=== PATIENT | female | born 1990 | race Caucasian/White ===

== ENCOUNTER 2018-01-01 21:02 | Emergency (ER) | payer OTHER ==
[2018-01-01] MEDS ORDERED: Lidocaine 1% INJ* 10 MG/ML 30 ML SDV INJ ONE (22:43)
--- NOTE | 2018-01-01 22:59 | ED ---
Lower Extremity - HPI Summary HPI Summary: 27-year-old female presents with left thumb avulsion today. States she cut it on a knife. Area continues to bleed. No numbness or tingling. Her tetanus is up-to-date. No medical conditions. She denies any foreign body in the wound. She has been placing pressure on the area. - History of Current Complaint Chief Complaint: EDLacSutureRecheck Stated Complaint: LT THUMB LACERATION Time Seen by Provider: 01/01/18 22:15 Pain Intensity: 6 - Allergies/Home Medications Allergies/Adverse Reactions: Allergies Allergy/AdvReac Type Severity Reaction Status Date / Time No Known Allergies Allergy Verified 01/01/18 21:22 PMH/Surg Hx/FS Hx/Imm Hx Endocrine/Hematology History: Denies: Hx Anticoagulant Therapy Cardiovascular History: Denies: Hx Myocardial Infarction Infectious Disease History: No Infectious Disease History: Denies: Traveled Outside the [place] in Last 30 Days - Social History Alcohol Use: Occasionally Substance Use Type: Reports: None Smoking Status (MU): Never Smoked Tobacco Review of Systems Negative: Fever Negative: Chest Pain Negative: Shortness Of Breath Positive: Other - left thumb avulsion All Other Systems Reviewed And Are Negative: Yes Physical Exam Triage Information Reviewed: Yes Vital Signs On Initial Exam: Initial Vitals Temp Pulse Resp BP Pulse Ox 98.0 F 56 16 116/84 99 01/01/18 21:19 01/01/18 21:19 01/01/18 21:19 01/01/18 21:19 01/01/18 21:19 Vital Signs Reviewed: Yes Appearance: Positive: Well-Appearing Skin: Positive: Other - 1/2cm avuslion of left thumb partially end of nail involvement Head/Face: Positive: Normal Head/Face Inspection Eyes: Positive: Normal, Conjunctiva Clear ENT: Positive: Pharynx normal Respiratory/Lung Sounds: Positive: Clear to Auscultation, Breath Sounds Present Cardiovascular: Positive: Normal, RRR Musculoskeletal: Positive: Strength/ROM Intact - left thumb, Other - good pulses Neurological: Positive: Normal Psychiatric: Positive: Normal Procedures - Laceration/Wound Repair 1 Location: Other - left thumb Length, Depth and Shape: 1/2cm avuslion Irrigated w/ Saline (ccs): 30 Sterile Dressing Applied?: Yes - surgicel, xeroform, gauze, coband Diagnostics - Vital Signs Vital Signs Temp Pulse Resp BP Pulse Ox 01/01/18 21:19 98.0 F 56 16 116/84 99 - Laboratory Lab Statement: Any lab studies that have been ordered have been reviewed, and results considered in the medical decision making process. Lower Extremity Course/Dx - Course Course Of Treatment: 27-year-old female presents with left thumb avulsion today. States she cut it on a knife. Area continues to bleed. No numbness or tingling. Her tetanus is up-to-date. No medical conditions. She denies any foreign body in the wound. She has been placing pressure on the area. Clean area and placed Surgicel xeroform gauze and Coband on area. Bleeding controlled. Told to keep pressure dressing on area. Patient understands agrees plan. - Diagnoses Differential Diagnosis/HQI/PQRI: Positive: Other - laceration, avulsion, abrasion Provider Diagnoses: Nail avulsion Discharge - Sign-Out/Discharge Documenting (check all that apply): Patient Departure - Discharge Plan Condition: Good Disposition: HOME Patient Education Materials: Skin Avulsion (ED) Referrals: No Primary Care Phys,NOPCP [Primary Care Provider] - Additional Instructions: Keep area in pressure dressing for 48 hours, after 48 hours check for sign of infection leaving absorbable hemostat on wound and rewrap with pressure dressing for another 24 hours afterwards keep area covedred Follow up with primary within 5 days Return to ED if develop any signs of infection such as fever, spreading redness , or pus formation or if bleed through pressure dressing or any new or worsening symptoms - Billing Disposition and Condition Condition: GOOD Disposition: Home
[2018-01-01 23:49] VITALS: BP 125/75
== END 2018-01-01 23:34 | disposition home or self-care (01) ==
LOC: ED 21:02
DX: S61.112A Laceration without foreign body of left thumb with damage to nail, initial encounter (principal); W26.0XXA Contact with knife, initial encounter; Y93.9 Activity, unspecified; Y92.9 Unspecified place or not applicable
CPT/HCPCS: 99282